=== PATIENT | male | born 1980 | race Caucasian/White ===

== ENCOUNTER 2017-01-25 11:18 | Emergency (ER) | payer OTHER ==
[2017-01-25 11:25] VITALS: BP 126/72; PULSE 53; TEMP 97.6; BMI 26.5
--- NOTE | 2017-01-25 11:40 | PDOC ---
History of Present Illness <Ascencion Parson - Last Filed: 01/25/17 11:37> - General History Source: Patient Exam Limitations: No Limitations - History of Present Illness Initial Comments: 01/25/17 11:45 Patient is a 36 year old male with pmhx of depression, bipolar disorder, sleep apnea and anxiety who presents to the ED with lightheadedness for 1 week. Patient notes that the lightheadedness, upper body muscle tightness and dizziness for 1 week that has progressively worsened for 3-4 days. Patient reports that he stopped taking his psych meds about month and half ago. He denies any fever, chills, nausea, vomiting, or diarrhea. He denies any suicidal ideation. <Tracee Billingsley - Last Filed: 01/25/17 11:46> - General Chief Complaint: Lightheaded Stated Complaint: DIZZINESS Time Seen by Provider: 01/25/17 11:31 Past History - Past Medical History Psychiatric Problems: Yes (DEPRESSION,BIPOLAR,SCHIZ, ANXEITY) - Psycho/Social/Smoking Cessation Hx Anxiety: No Suicidal Ideation: No Smoking History: Never smoked Have you smoked in the past 12 months: No Information on smoking cessation initiated: No Hx Alcohol Use: No Drug/Substance Use Hx: No Substance Use Type: None <Ascencion Parson - Last Filed: 01/25/17 11:37> <Tracee Billingsley - Last Filed: 01/25/17 11:46> - Past Medical History Allergies/Adverse Reactions: Allergies Allergy/AdvReac Type Severity Reaction Status Date / Time No Known Allergies Allergy Verified 01/25/17 11:21 Home Medications: Ambulatory Orders NK [No Known Home Medication] 01/25/17 Review of Systems - Review of Systems Able to Perform ROS?: Yes Comments:: 01/25/17 11:45 General: Absent: fever, chills : Absent: nausea, vomiting, diarrhea Psych: Absent: suicidal ideation <Tracee Billingsley - Last Filed: 01/25/17 11:46> *Physical Exam - Vital Signs Last Vital Signs Temp Pulse Resp BP Pulse Ox 97.6 F 53 L 18 126/72 98 01/25/17 11:22 01/25/17 11:22 01/25/17 11:22 01/25/17 11:22 01/25/17 11:29 - Physical Exam General Appearance: Yes: Nourished, Appropriately Dressed. No: Apparent Distress HEENT: positive: Normal ENT Inspection (BUT DRY MUCOSAE) Neck: positive: Supple. negative: Tender Respiratory/Chest: positive: Lungs Clear, Normal Breath Sounds. negative: Chest Tender, Respiratory Distress Cardiovascular: positive: Regular Rhythm, Regular Rate, Bradycardia Gastrointestinal/Abdominal: positive: Normal Bowel Sounds, Soft. negative: Tender Musculoskeletal: positive: Normal Inspection. negative: CVA Tenderness Extremity: positive: Normal Inspection, Normal Range of Motion Integumentary: positive: Normal Color, Dry Neurologic: positive: Fully Oriented, Alert, Normal Mood/Affect, Normal Response , Motor Strength 5/5 <Ascencion Parson - Last Filed: 01/25/17 11:37> - Vital Signs Last Vital Signs Temp Pulse Resp BP Pulse Ox 97.6 F 53 L 18 126/72 98 01/25/17 11:22 01/25/17 11:22 01/25/17 11:22 01/25/17 11:22 01/25/17 11:29 <Tracee Billingsley - Last Filed: 01/25/17 11:46> *DC/Admit/Observation/Transfer <Ascencion Parson - Last Filed: 01/25/17 11:37> - Attestations Scribe Attestion: 01/25/17 11:45 Documentation prepared by ZULMA Roth, acting as medical technician assistant for Ascencion Parson MD/DO. <Tracee Billingsley - Last Filed: 01/25/17 11:46> Diagnosis at time of Disposition: Dehydration, mild - Discharge Dispostion Disposition: HOME Condition at time of disposition: Stable - Patient Instructions Additional Instructions: SEE YOUR DOCTOR THIS WEEK DO NOT STOP MEDICATIONS WITHOUT YOUR DOCTOR CONSENT RETURN IF WORSENING OR NEW SYMPTOMS
== END 2017-01-25 11:47 | disposition home or self-care (01) ==
LOC: JER 11:18
DX: E87.6 Hypokalemia (principal); F31.9 Bipolar disorder, unspecified; F41.9 Anxiety disorder, unspecified
CPT/HCPCS: 99282-25

== ENCOUNTER 2017-09-16 16:59 | Emergency (ER) | payer BC, OTHER ==
[2017-09-16 17:24] VITALS: BP 127/77; PULSE 56; TEMP 98.6; BMI 26.6
--- NOTE | 2017-09-16 18:14 | PDOC ---
Attending Attestation - Resident Resident Name: Mehdi Forte - ED Attending Attestation I have performed the following: I have examined & evaluated the patient, The case was reviewed & discussed with the resident, I agree w/resident's findings & plan, Exceptions are as noted - HPI HPI: 09/16/17 18:12 Healthy 37 yo co hemoptysis and rectal bleeding today. - Physicial Exam PE: 09/16/17 18:13 VSS, NAD - Medical Decision Making 09/16/17 18:[address] Forte's Assessment and Plan
[2017-09-16 19:39] LABS: MCH 28.9 pg (25.7-33.7); MCHC 33.9 g/dl (32.0-35.9); MEAN CELL VOLUME 85.2 fl (80-96); PLATELET COUNT 178 K/MM3 (134-434); RDW 14.1 % (11.9-15.9); WHITE BLOOD COUNT 6.1 K/mm3 (4.0-10.0)
[2017-09-16 19:54] LABS: INR 0.96 (0.82-1.09); PROTHROMBIN TIME (PATIENT) 10.8 SEC (9.98-11.88)
[2017-09-16 20:03] LABS: ALBUMIN 3.9 g/dl (3.4-5.0); ANION GAP 4 (8-16); BILIRUBIN,TOTAL 0.4 mg/dL (0.2-1.0); CALCIUM 8.6 mg/dL (8.5-10.1); CO2 30 mmol/L (21-32); GLUCOSE,RANDOM 83 mg/dL (74-106); SGOT/AST 26 U/L (15-37); SGPT/ALT 38 U/L (12-78); TOT PROT 6.8 g/dl (6.4-8.2)
--- NOTE | 2017-09-16 20:03 | PDOC ---
History of Present Illness - General Chief Complaint: Hemoptysis Stated Complaint: RECTAL BLEEDING Time Seen by Provider: 09/16/17 18:11 History Source: Patient Exam Limitations: No Limitations - History of Present Illness Initial Comments: 09/16/17 19:59 The patient is a 37 year old male, with a significant past medical history of bipolar and anxiety, who presents to the emergency department with hemoptysis. Patient states last night he had 1 episode of coughing up blood. Patient had 1 episode of blood in his snot when blowing his nose this morning. Patient has never had this prior. Patient denies any blood thinner usage, fever, chills, n/v /d/c, cough, chest pain, sob, abd pain, dysuria, hematuria. Allergies: NKDA Past surgical history: denies Social history: Denies PMD - Dr Flower Past History - Past Medical History Allergies/Adverse Reactions: Allergies Allergy/AdvReac Type Severity Reaction Status Date / Time No Known Allergies Allergy Verified 09/16/17 17:21 Home Medications: Ambulatory Orders NK [No Known Home Medication] 01/25/17 Psychiatric Problems: Yes (DEPRESSION,BIPOLAR,SCHIZ, ANXEITY) - Suicide/Smoking/Psychosocial Hx Smoking History: Never smoked Have you smoked in the past 12 months: No Hx Alcohol Use: No Drug/Substance Use Hx: No Substance Use Type: None Review of Systems - Review of Systems Able to Perform ROS?: Yes Comments:: 09/16/17 19:59 GENERAL/CONSTITUTIONAL: No fever or chills. No weakness. HEAD, EYES, EARS, NOSE AND THROAT: No change in vision. No ear pain or discharge. No sore throat. CARDIOVASCULAR: No chest pain or shortness of breath RESPIRATORY: No cough, wheezing, + hemoptysis GASTROINTESTINAL: No nausea, vomiting, diarrhea or constipation. GENITOURINARY: No dysuria, frequency, or change in urination. MUSCULOSKELETAL: No joint or muscle swelling or pain. No neck or back pain. SKIN: No rash NEUROLOGIC: No headache, vertigo, loss of consciousness, or change in strength/ sensation. ENDOCRINE: No increased thirst. No abnormal weight change HEMATOLOGIC/LYMPHATIC: No anemia, easy bleeding, or history of blood clots. ALLERGIC/IMMUNOLOGIC: No hives or skin allergy. *Physical Exam - Vital Signs Last Vital Signs Temp Pulse Resp BP Pulse Ox 98.6 F 56 L 19 127/77 100 09/16/17 17:21 09/16/17 17:21 09/16/17 17:21 09/16/17 17:21 09/16/17 17:21 - Physical Exam Comments: 09/16/17 19:59 GENERAL: Awake, alert, and fully oriented, in no acute distress HEAD: No signs of trauma, normocephalic, atraumatic EYES: PERRLA, EOMI, sclera anicteric, conjunctiva clear ENT:hearing grossly normal, nares patent, oropharynx clear without exudates. Moist mucosa. No pharyngeal erythema, Dry nasal mucosa NECK: Normal ROM, supple, no lymphadenopathy, JVD, or masses LUNGS: No distress, speaks full sentences, clear to auscultation bilaterally HEART: Regular rate and rhythm, normal S1 and S2, no murmurs, rubs or gallops, peripheral pulses normal and equal bilaterally. ABDOMEN: Soft, nontender, normoactive bowel sounds. No guarding, no rebound. No masses EXTREMITIES: Normal inspection, Normal range of motion, no edema. No clubbing or cyanosis. NEUROLOGICAL: Cranial nerves II through XII grossly intact. Normal speech, normal gait, no focal sensorimotor deficits SKIN: Warm, Dry, normal turgor, no rashes or lesions noted. ED Treatment Course - LABORATORY CBC & Chemistry Diagram: 09/16/17 19:10 09/16/17 19:10 - ADDITIONAL ORDERS Additional order review: 09/16/17 19:10 RBC 5.05 MCV 85.2 MCHC 33.9 RDW 14.1 MPV 10.0 Medical Decision Making - Medical Decision Making 09/16/17 20:02 37 y.o. M with nasal bleeding and hemoptysis. Plan: CBC, CMP, PT/INR, PTT 09/16/17 20:03 CBC unremarkable. 09/16/17 20:50 CMP, pt/inr, ptt unremarkable 09/16/17 20:58 Patient stable for d/c *DC/Admit/Observation/Transfer Diagnosis at time of Disposition: Epistaxis - Discharge Dispostion Disposition: HOME Condition at time of disposition: Stable - Patient Instructions Printed Discharge Instructions: DI for Nosebleed Additional Instructions: Follow up with your primary care provider and psychiatrist. If you have worsening bleeding, lightheadedness, chest pain, or shortness of breath come back to the hospital immediately.
[2017-09-16 20:04] LABS: ALK PHOS 74 U/L (45-117)
== END 2017-09-16 21:25 | disposition home or self-care (01) ==
LOC: JER 16:59
DX: R04.0 Epistaxis (principal)
CPT/HCPCS: 36415; 80053; 85027; 85610; 85730; 99282-25